=== PATIENT | male | born 1985 | race American Indian/Alaskan Native ===

== ENCOUNTER 2019-03-25 11:38 | Emergency (ER) | payer OTHER ==
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
[2019-03-25 11:45] VITALS: BP 107/75
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
== END 2019-03-25 12:56 | disposition home or self-care (01) ==
LOC: ED 11:38
DX: M54.5 Low back pain (principal); F17.200 Nicotine dependence, unspecified, uncomplicated; Z79.899 Other long term (current) drug therapy; V43.62XA Car passenger injured in collision with other type car in traffic accident, initial encounter; Y93.89 Activity, other specified; Y92.410 Unspecified street and highway as the place of occurrence of the external cause; Y99.8 Other external cause status
CPT/HCPCS: 72100